=== PATIENT | male | born 1970 | race Caucasian/White ===

== ENCOUNTER 2017-11-28 08:22 | Day surgery (SDC) | payer OTHER ==
[2017-11-24 11:12] LABS: HEMATOCRIT 46.3 % (37.9-51.0); HEMOGLOBIN 15.7 g/dL (13.5-17.0); MEAN CORPUSCULAR HEMOGLOBIN 29.4 pg (27.0-33.4); MEAN CORPUSCULAR HGB CONC 33.8 g/dL (32.0-36.0); MEAN CORPUSCULAR VOLUME 87 fl (80-97); PLATELET COUNT 193 10^3/uL (150-450); RED BLOOD COUNT 5.34 10^6/uL (4.35-5.55); RED CELL DISTRIBUTION WIDTH 13.6 % (11.5-14.0); WHITE BLOOD COUNT 8.3 10^3/uL (4.0-10.5)
--- NOTE | 2017-11-24 21:56 | EKG REPORT ---
SEVERITY:- ABNORMAL ECG - SINUS RHYTHM MULTIFORM VENTRICULAR PREMATURE COMPLEXES RIGHT VENTRICULAR HYPERTROPHY : Confirmed by: Teresa Dennison 24-Nov-2017 21:55:24
[~2017-11-28 08:22] MED LIST: ACETAMINOPHEN 325 MG TABLET PO PRN; CEFAZOLIN 1 GM/D5W RTU 1 GM/50 ML RTUPB IV PRN; LACTATED RINGERS 1000 ML IV PRN; LIDOCAINE 0.5% INJ-PF (5 MG/ML) 50 ML SDV SUBCUT PRN
--- NOTE | 2017-11-28 08:53 | EKG REPORT ---
SEVERITY:- BORDERLINE ECG - SINUS ARRHYTHMIA, RATE 58-66 VENTRICULAR PREMATURE COMPLEX RIGHT AXIS DEVIATION BORDERLINE T ABNORMALITIES, ANT-LAT LEADS : Confirmed by: Teresa Dennison 28-Nov-2017 08:53:15
[2017-11-28] MEDS ORDERED: BUPIVACAINE HCL 0.25 % INJ/PF (2.5 MG/1 ML) 30 ML VIAL ONE (10:06)
[2017-11-28] MEDS ORDERED: MIDAZOLAM 2 MG/2 ML INJ ONE (11:04)
[2017-11-28] MEDS ORDERED: FENTANYL CITRATE INJ/PF 100 MCG/2 ML AMPUL ONE (11:04)
[2017-11-28] MEDS ORDERED: PROPOFOL INJ 200 MG/20 ML VIAL IV ONE (11:04)
[2017-11-28] MEDS ORDERED: ACETAMINOPHEN 100 ML IV ONE (11:05)
[2017-11-28] MEDS ORDERED: MEPERIDINE HCL/PF INJ 25 MG/1 ML DISP.SYRIN IV PRN (11:45)
[2017-11-28] MEDS ORDERED: OXYCODONE-ACETAMINOPHEN 5-325 MG TABLET PO PRN ×2 (11:45)
[2017-11-28] MEDS ORDERED: DIPHENHYDRAMINE HCL 50 MG/ML VIAL IV PRN (11:45)
[2017-11-28] MEDS ORDERED: PROMETHAZINE HCL INJ 25 MG/1 ML VIAL IV PRN ×2 (11:45)
[2017-11-28] MEDS ORDERED: FENTANYL CITRATE INJ/PF 100 MCG/2 ML AMPUL IV PRN ×3 (11:45)
--- NOTE | 2017-11-28 12:12 | Discharge Summary ---
Discharge Summary (SDC) - Discharge Final Diagnosis: Umbilical hernia Date of Surgery: 11/28/17 Discharge Date: 11/28/17 Treatment or Instructions: Patient may shower; wear abdominal binder when ambulating; prescription on chart ; no heavy lifting greater than 15 pounds; follow-up with [facility] in 1 week. May resume preoperative medications diet activity Referrals: MERI LOCKETT PA-C [Primary Care Provider] - Discharge Activity: Activity As Tolerated, No Lifting Over 10 Pounds Home Care Assistance: None Needed Report the Following to Your Physician Immediately: Shortness of Breath, Increase in Pain, Fever over 101 Degrees
--- NOTE | 2017-11-28 12:18 | Operative Report ---
Operative Report DATE OF SURGERY: 11/28/17 PREOPERATIVE DIAGNOSIS: Umbilical hernia POSTOPERATIVE DIAGNOSIS: Same OPERATION: Laparoscopic closure of umbilical hernia with primary suture approximation and reinforcement with 9 cm Covidien mesh SURGEON: ONDINA CONTE ANESTHESIA: GA TISSUE REMOVED OR ALTERED: None COMPLICATIONS: None ESTIMATED BLOOD LOSS: Scant INTRAOPERATIVE FINDINGS: See below PROCEDURE: Patient was taken from the preop holding area the main operating room where general anesthesia was induced. Arms were abducted, abdomen exposed, prepped and draped in sterile fashion. Surgical plan surgical timeout were conducted. Markings were made on the patient's abdominal wall for the planned 3 port herniorrhaphy. Left upper quadrant stab was made with a knife Veress needle inserted the peritoneal cavity pneumoperitoneum was established. Veress needle was removed, and a 5 mm ports inserted and a 5 mm flexible scope was inserted. Under direct visualization 2 additional ports were placed one on left lower quadrant and one in the right mid field position. Findings are significant for some adhesions between the omentum and the anterior abdominal wall. Is a small umbilical defect approximately 2 cm in diameter. There was some retroperitoneal fat stuck adjacent to the hernia and this was removed using a combination of traction and electrocautery dissection. We now had good visualization of the fascial defect. A small nia was made in the skin overlying the umbilicus, and using the disposable suture passer, a #1 PDS suture was threaded through the abdominal wall, closing the fascial defect with a [id number] suture, knot secured. Approximation was under minimal tension. We now brought onto the field a non- 9 cm Covidien polypropylene mesh, with sutures of 0 PDS suture placed at the 12, 3, 6, 9:00 positions. Mesh was moistened, rolled, brought to the anterior abdominal wall at the right-sided port site incision. Mesh was unrolled, and using the possible suture passer, the mesh was brought up to the anterior abdominal wall at the respective fixation sites. We then came around to the open areas and secured the rest of the mesh to the intra-abdominal wall with approximately 12 sure tack kenneth. Concluding photos were taken. We inspected the viscera for any evidence of injury and there was none. No mechanical bleeding. We felt the operation was complete. Needle counts were correct. All ports removed under direct visualization, pneumoperitoneum evacuated, 3 oh, benzoin and Steri-Strips. patient tolerated procedure well, extubated, taken recovery in stable condition.
[2017-11-28] MEDS: FENTANYL CITRATE INJ/PF 100 MCG/2 ML AMPUL ONE ×2 (12:35→12:40)
[2017-11-28] MEDS ORDERED: OXYCODONE-ACETAMINOPHEN 5-325 MG TABLET ONE (13:38)
[2017-11-28] MEDS ORDERED: KETOROLAC TROMETHAMINE 60 MG/2 ML SDV ONE (14:54)
[2017-11-28] MEDS ORDERED: SUCCINYLCHOLINE CHLORIDE INJ 200 MG/10 ML VIAL ONE (14:54)
[2017-11-28] MEDS ORDERED: NEOSTIGMINE METHYLSULFATE 10 MG/10 ML VIAL ONE ×2 (14:54→14:55)
[2017-11-28] MEDS ORDERED: ONDANSETRON HCL INJ/PF 4 MG/2 ML SDV ONE (14:54)
[2017-11-28] MEDS ORDERED: DEXAMETHASONE SOD PHOSPHATE INJ 4 MG/1 ML VIAL ONE (14:54)
[2017-11-28] MEDS ORDERED: GLYCOPYRROLATE INJ 0.4 MG/2 ML VIAL ONE ×2 (14:54→14:55)
[2017-11-28 16:07] VITALS: BP 130/73
== END 2017-11-28 16:00 | disposition home or self-care (01) ==
LOC: OROUT 08:22
PROVIDERS: ATTEND Surgery
PROC: 0WUF4JZ Supplement Abdominal Wall with Synthetic Substitute, Percutaneous Endoscopic Approach (ICD-10-PCS; principal; 2017-11-28 10:30)
DX: K42.9 Umbilical hernia without obstruction or gangrene (principal); E11.9 Type 2 diabetes mellitus without complications; I10 Essential (primary) hypertension; M19.90 Unspecified osteoarthritis, unspecified site; E78.00 Pure hypercholesterolemia, unspecified; K21.9 Gastro-esophageal reflux disease without esophagitis; G47.30 Sleep apnea, unspecified; Z87.891 Personal history of nicotine dependence; Z79.84 Long term (current) use of oral hypoglycemic drugs; Z79.899 Other long term (current) drug therapy; Z79.1 Long term (current) use of non-steroidal anti-inflammatories (NSAID)
CPT/HCPCS: 36415; 750; 85027; 93005; 93010; C1781; J0131; J0330; J0690; J1100; J1885; J2250; J2405; J2704; J3010